=== PATIENT | female | born 1995 | race African-American/Black ===

== ENCOUNTER 2017-02-11 12:40 | Emergency (ER) | payer SELFPAY ==
[2017-02-11] MEDS ORDERED: Albuterol Sulfate 2.5 mg/0.5 ml Neb ONE ×2 (13:06→14:14)
[2017-02-11] MEDS ORDERED: predniSONE 20 MG TAB ONE (13:17)
== END 2017-02-11 15:05 | disposition home or self-care (01) ==
LOC: ERS 12:40
DX: J45.901 Unspecified asthma with (acute) exacerbation (principal)
CPT/HCPCS: 94640; J7506; J7611; J7620

== ENCOUNTER 2017-02-12 03:40 | Emergency (ER) | payer SELFPAY ==
[2017-02-12] MEDS ORDERED: Dexamethasone 4 mg/ml Vial ONE (04:05)
[2017-02-12] MEDS ORDERED: Magnesium Sulfate 2 GM/100 ML BAG ONE (04:52)
== END 2017-02-12 07:14 | disposition home or self-care (01) ==
LOC: ERS 03:40
DX: J45.909 Unspecified asthma, uncomplicated (principal)
CPT/HCPCS: 94640; 96365; 96367; J1100; J3475; J7620

== ENCOUNTER 2017-04-04 19:50 | Emergency (ER) | payer SELFPAY ==
[2017-04-04] MEDS ORDERED: Dexamethasone 4 mg/ml Vial ONE (21:09)
== END 2017-04-04 21:37 | disposition home or self-care (01) ==
LOC: ERS 19:50
DX: J02.9 Acute pharyngitis, unspecified (principal); J45.909 Unspecified asthma, uncomplicated; Z79.899 Other long term (current) drug therapy
CPT/HCPCS: 87081; 87430; 96372; J1100

== ENCOUNTER 2017-06-29 08:24 | Emergency (ER) | payer MEDICAID, SELFPAY ==
[2017-06-29] MEDS ORDERED: methylPREDNISolone Sod Succ/PF 125 MG/2 ML VIAL ONE (08:37)
[2017-06-29] MEDS ORDERED: Fentanyl 100 MCG/2 ML VIAL ONE (10:25)
[2017-06-29] MEDS ORDERED: Magnesium Sulfate 2 GM/100 ML BAG ONE (10:25)
[2017-06-29] MEDS ORDERED: Propofol 1,000 MG/100 ML VIAL IV ONE (11:51)
== END 2017-06-29 11:13 | disposition home or self-care (01) ==
LOC: ERS 08:24
DX: J45.901 Unspecified asthma with (acute) exacerbation (principal); J11.1 Influenza due to unidentified influenza virus with other respiratory manifestations; Z79.899 Other long term (current) drug therapy
CPT/HCPCS: 94640; 96361; 96374; J2704; J2930; J3010; J3475; J7620

== ENCOUNTER 2017-11-21 17:37 | Emergency (ER) | payer SELFPAY ==
--- NOTE | 2017-11-21 18:20 | RAD ---
THREE VIEWS LEFT WRIST: Date: 11-21-17 History: Left wrist pain following a fall. FINDINGS: There is no widening of the scapholunate interval. No displaced fracture or evidence of dislocation i s noted. The lateral examination demonstrates normal alignment. IMPRESSION: No acute findings. If symptoms persist, follow up in 7-10 days with dedicated scaphoid views advised. POS: [facility]
== END 2017-11-21 18:57 | disposition home or self-care (01) ==
LOC: ERS 17:37
DX: S60.212A Contusion of left wrist, initial encounter (principal); J45.909 Unspecified asthma, uncomplicated; F17.200 Nicotine dependence, unspecified, uncomplicated; W10.9XXA Fall (on) (from) unspecified stairs and steps, initial encounter

== ENCOUNTER 2018-02-10 00:17 | Emergency (ER) | payer SELFPAY | END 2018-02-10 01:30 | disposition home or self-care (01) | LOC: ERS 00:17 | DX: J45.901 Unspecified asthma with (acute) exacerbation (principal); F17.200 Nicotine dependence, unspecified, uncomplicated | CPT/HCPCS: J7620 ==

== ENCOUNTER 2018-09-07 18:21 | Emergency (ER) | payer SELFPAY | END 2018-09-07 19:20 | disposition home or self-care (01) | LOC: ERS 18:21 | DX: S00.83XA Contusion of other part of head, initial encounter (principal); J45.909 Unspecified asthma, uncomplicated; F17.200 Nicotine dependence, unspecified, uncomplicated; W50.0XXA Accidental hit or strike by another person, initial encounter; Y93.71 Activity, boxing | CPT/HCPCS: 99283 ==

== ENCOUNTER 2018-11-15 12:22 | Emergency (ER) | payer SELFPAY ==
[2018-11-15 13:45] LABS: Bilirubin Negative (Negative); Blood, Urine Negative (Negative); Clarity Clear (Clear); Glucose, Urine (Dipstick) Normal (Negative); Leukocyte Negative Leu/uL (Negative); Nitrite Negative (Negative); Protein, Urine (Dipstick) Negative (Neg-Trace); RBC/HPF 0-3 HPF (0-3); Squamous Epithelial 0-3 HPF (0-3); Urobilinogen Normal mg/dL (Less than 2); WBC/HPF 0-3 HPF (0-3)
[2018-11-15 13:46] LABS: Bacteria/HPF None Seen HPF (None Seen); Pregnancy Test - Urine (BHCG) Negative (Negative); Pregu Control Background? CLEAR/WHITE (CLR/WHITE); Pregu Control Bar Appear? YES (CONTROL BAR); Specific Gravity 1.003 (1.002-1.036)
== END 2018-11-15 14:36 | disposition home or self-care (01) ==
LOC: ERS 12:22
DX: N89.8 Other specified noninflammatory disorders of vagina (principal); J45.909 Unspecified asthma, uncomplicated; Z79.51 Long term (current) use of inhaled steroids
CPT/HCPCS: 81003; 81025; 99284

== ENCOUNTER 2019-10-22 11:22 | Outpatient (CLI) | payer OTHER ==
[2019-10-23 13:58] LABS: SARS-CoV-2 MS2 Positive
[2019-10-23 13:59] LABS: SARS-CoV-2 N Gene Positive; SARS-CoV-2 S Gene Positive; SARS-CoV-2 orf1ab Positive
== END 2019-10-22 11:23 | disposition home or self-care (01) ==
LOC: LABBT 11:22
PROVIDERS: ATTEND Family Medicine
DX: Z01.812 Encounter for preprocedural laboratory examination (principal); Z11.59 Encounter for screening for other viral diseases
CPT/HCPCS: 87635; U0003

== ENCOUNTER 2019-10-23 05:30 | Inpatient (IN) | payer OTHER ==
[2019-10-23 09:46] VITALS: BMI 27.1
[2019-10-23] MEDS: Lactated Ringer's 1,000 ML IV SCH ×3 (10:03→17:09)
[2019-10-23] MEDS ORDERED: Promethazine HCl 25 MG/ML VIAL IM PRN ×2 (10:08→13:16)
[2019-10-23] MEDS ORDERED: Lidocaine 1% (PF) 30 ML VIAL SC PRN (10:08)
[2019-10-23] MEDS ORDERED: NS w/ Oxytocin 10 units 500 ML IV SCH ×2 (10:08)
[2019-10-23] MEDS ORDERED: Butorphanol Tartrate 1 MG/ML VIAL SLOW IVP PRN (10:08)
[2019-10-23] MEDS ORDERED: Methylergonovine 0.2 MG/ML VIAL IM PRN (10:08)
[2019-10-23] MEDS ORDERED: Ondansetron PF 4 MG/2 ML Vial IVP PRN ×3 (10:08→20:56)
[2019-10-23] MEDS ORDERED: hydrALAZINE 20 MG/ML VIAL SLOW IVP PRN ×2 (10:08→20:56)
[2019-10-23] MEDS ORDERED: HYDROcodone/Acetaminophen 5/325 mg Tablet PO PRN (10:08)
[2019-10-23] MEDS ORDERED: Carboprost 250 MCG/ML AMP IM PRN (10:08)
[2019-10-23] MEDS ORDERED: Misoprostol 200 MCG TAB PR PRN (10:08)
[2019-10-23] MEDS ORDERED: Diphenoxylate HCl/Atropine Tablet PO PRN (10:08)
[2019-10-23] MEDS ORDERED: Ibuprofen 800 MG TAB PO PRN (10:08)
[2019-10-23] MEDS ORDERED: NS / Oxytocin 40 units/1000ml 1,000 ML IV PRN (10:08)
[2019-10-23 10:42] LABS: Hemoglobin 11.8 g/dL (12.0-16.0); Mean Corpuscular Hemoglobin 29.2 pg (27.0-31.0); Mean Corpuscular Volume 88.7 fL (78.0-98.0); Platelet Count 137 thou/uL (130-400); RBC Distribution Width 12.5 % (11.5-14.5); Red Blood Cell (RBC) Count 4.04 mill/uL (4.20-5.40); White Blood Cell (WBC) Count 8.3 thou/uL (4.8-10.8)
[2019-10-23 11:22] LABS: HBSAg Index 0.18 S/CO (0-0.99); Hep B Surf Ag Non-Reactive S/CO (NonReactive)
[2019-10-23 11:23] LABS: Syphilis Antibody Nonreactive (Nonreactive); Syphilis Antibody Index 0.06 S/CO (<1.00 Non-Reactive)
[2019-10-23] MEDS ORDERED: Fentanyl 4 mcg/Bup 0.1% Cadd 100 ML ONE (12:10)
[2019-10-23] MEDS ORDERED: diphenhydrAMINE 50 MG/ML VIAL IVP PRN (13:16)
[2019-10-23] MEDS ORDERED: Lactated Ringer's 500 ML IV PRN (13:16)
[2019-10-23] MEDS ORDERED: EPHEDRINE 25 MG/5 ML SYRINGE SLOW IVP PRN (13:16)
[2019-10-23] MEDS ORDERED: Acetaminophen 325 MG TAB PO PRN (13:16)
[2019-10-23] MEDS ORDERED: Naloxone HCl 0.4 mg/ml Vial IVP PRN ×2 (13:16)
[2019-10-23] MEDS ORDERED: Lidocaine 1% (PF) 30 ML VIAL ONE (13:28)
[2019-10-23] MEDS ORDERED: NS / Oxytocin 40 units/1000ml 1,000 ML ONE (13:28)
[2019-10-23] MEDS ORDERED: Fentanyl 4 mcg/Bupivacaine 0.1% Cassette 100 ML EPIDURAL SCH (13:30)
[2019-10-23] MEDS ORDERED: Communication Order-Pharmacy FS SCH (13:30)
[2019-10-23] MEDS ORDERED: NS / Oxytocin 40 units/1000ml 1,000 ML IV SCH (20:56)
[2019-10-23] MEDS ORDERED: Preparation H Ointment 28 GM TUBE PR PRN (20:56)
[2019-10-23] MEDS ORDERED: Milk Of Magnesia 30 ML UDCUP PO PRN (20:56)
[2019-10-23] MEDS ORDERED: diphenhydrAMINE 25 MG CAP PO PRN (20:56)
[2019-10-23] MEDS ORDERED: Bisacodyl 10 MG SUPP PR PRN (20:56)
[2019-10-23] MEDS ORDERED: Lanolin Ointment 7 GM TUBE TOP PRN (20:56)
[2019-10-24] MEDS: Docusate Calcium (SURFAK) 240 MG CAP PO SCH ×3 (00:41→21:14)
[2019-10-24] MEDS: Ibuprofen 800 MG TAB PO SCH ×3 (00:42→18:28)
[2019-10-24] MEDS: HYDROcodone/Acetaminophen 5/325 mg Tablet PO PRN ×4 (02:19→21:14)
[2019-10-24 07:02] LABS: Hemoglobin 11.7 g/dL (12.0-16.0); Mean Corpuscular Hemoglobin 30.4 pg (27.0-31.0); Mean Corpuscular Volume 89.5 fL (78.0-98.0); Mean Platelet Volume 9.8 fL (7.4-10.4); Platelet Count 131 thou/uL (130-400); RBC Distribution Width 12.3 % (11.5-14.5); Red Blood Cell (RBC) Count 3.84 mill/uL (4.20-5.40); White Blood Cell (WBC) Count 10.6 thou/uL (4.8-10.8)
[2019-10-24] MEDS: Ferrous Sulfate 325 MG TAB PO SCH ×2 (08:07→18:02)
[2019-10-24] MEDS: Prenatal Vitamin 1 TAB PO SCH (08:38)
[2019-10-24] MEDS ORDERED: Adacel (T-DAP) 0.5 ML SYRINGE IM ONE (09:00)
[2019-10-25] MEDS: HYDROcodone/Acetaminophen 5/325 mg Tablet PO PRN (01:04)
[2019-10-25] MEDS: Ibuprofen 800 MG TAB PO SCH ×2 (05:15→05:28)
[2019-10-25 08:23] VITALS: BP 127/76; TEMP 98.4
[2019-10-25] MEDS: Prenatal Vitamin 1 TAB PO SCH (10:35)
[2019-10-25] MEDS: Ferrous Sulfate 325 MG TAB PO SCH (10:35)
[2019-10-25] MEDS: Docusate Calcium (SURFAK) 240 MG CAP PO SCH (10:35)
== END 2019-10-25 12:26 | disposition home or self-care (01) | DRG 805 ==
LOC: L&D 09:13
PROVIDERS: ADMIT Family Medicine; ATTEND Family Medicine
PROC: 10E0XZZ Delivery of Products of Conception, External Approach (ICD-10-PCS; principal; 2019-10-23)
DX: O98.52 Other viral diseases complicating childbirth (principal); U07.1 COVID-19; Z37.0 Single live birth; Z3A.39 39 weeks gestation of pregnancy
CPT/HCPCS: 36415; 51702; 85027; 86780; 86850; 86900; 86901; 87340; 87635; J2001; J2405; J2550; J2590; U0003

== ENCOUNTER 2020-07-26 11:42 | Emergency (ER) | payer OTHER ==
[2020-07-26] MEDS ORDERED: Ibuprofen 800 MG TAB ONE (12:29)
[2020-07-26 12:41] LABS: Bacteria/HPF None Seen HPF (None Seen); Bilirubin Negative (Negative); Blood, Urine 1+ (Negative); Clarity Clear (Clear); Glucose, Urine (Dipstick) Normal (Negative); Ketone, Urine Negative (Negative); Leukocyte Negative Leu/uL (Negative); Nitrite Negative (Negative); Protein, Urine (Dipstick) 20 mg/dL (Neg-Trace); RBC/HPF 0-3 HPF (0-3); Specific Gravity, Urine 1.028 (1.002-1.036); Squamous Epithelial 0-3 HPF (0-3); WBC/HPF 0-3 HPF (0-3)
[2020-07-26 12:42] LABS: Pregnancy Test - Urine (BHCG) Negative (Negative); Pregu Control Background? CLEAR/WHITE (CLR/WHITE); Pregu Control Bar Appear? YES (CONTROL BAR); Specific Gravity 1.028 (1.002-1.036)
[2020-07-26] MEDS ORDERED: Lidocaine 1% (PF) 30 ML VIAL ONE (13:42)
[2020-07-26] MEDS ORDERED: cefTRIAXone\\ROCEPHIN 500 MG VIAL ONE (13:42)
[2020-07-26] MEDS ORDERED: Azithromycin 250 MG TAB ONE (13:42)
[2020-07-27 20:47] LABS: Chlamydia by PCR Not Detected (NotDetected); GC by PCR Not Detected (NotDetected)
== END 2020-07-26 14:08 | disposition home or self-care (01) ==
LOC: ERS 11:42
DX: T19.2XXA Foreign body in vulva and vagina, initial encounter (principal); N89.8 Other specified noninflammatory disorders of vagina; J45.909 Unspecified asthma, uncomplicated
CPT/HCPCS: 81003; 81015; 81025; 87480; 87491; 87510; 87591; 87660; 96372; 99284; J0696; J2001

== ENCOUNTER 2020-12-28 14:18 | Emergency (ER) | payer OTHER ==
[2020-12-28] MEDS ORDERED: Mag-Al 1200 mg/1200 mg/30 ML UDCUP ONE (15:30)
[2020-12-28] MEDS ORDERED: Lidocaine Viscous Sol 2% 15 ml UD Cup ONE (15:30)
== END 2020-12-28 16:55 | disposition home or self-care (01) ==
LOC: ERS 14:18
DX: J02.9 Acute pharyngitis, unspecified (principal); F45.8 Other somatoform disorders; J45.909 Unspecified asthma, uncomplicated; F17.210 Nicotine dependence, cigarettes, uncomplicated
CPT/HCPCS: 70360; 87081; 87430

== ENCOUNTER 2024-01-04 16:13 | Emergency (ER) | payer OTHER, SELFPAY ==
[2024-01-04 17:01] LABS: Bacteria/HPF None Seen HPF (None Seen); Bilirubin Negative (Negative); Blood, Urine 3+ (Negative); CAUTI Indications for Culture Pelvic or flank pain; Clarity Clear (Clear); Glucose, Urine (Dipstick) Normal (Negative); Ketone, Urine Negative (Negative); Leukocyte Negative Leu/uL (Negative); Nitrite Negative (Negative); Protein, Urine (Dipstick) Negative (Neg-Trace); RBC/HPF 0-3 HPF (0-3); Specific Gravity, Urine 1.017 (1.002-1.036); Urobilinogen Normal mg/dL (Less than 2); WBC/HPF 0-3 HPF (0-3); pH, Urine 6.5 (5.0-9.0)
[2024-01-04 17:02] LABS: Pregnancy Test - Urine (BHCG) Negative (Negative); Pregu Control Background? CLEAR/WHITE (CLR/WHITE); Pregu Control Bar Appear? YES (CONTROL BAR); Specific Gravity 1.017 (1.002-1.036)
[2024-01-04 17:03] LABS: Urine Culture Reflex No No
[2024-01-05 10:46] LABS: Chlamydia by PCR, Vaginal Swab Not Detected (NotDetected); GC by PCR, Vaginal Swab Not Detected (NotDetected)
== END 2024-01-04 18:00 | disposition home or self-care (01) ==
LOC: ERS 16:13
DX: N76.0 Acute vaginitis (principal)
CPT/HCPCS: 81001; 81025; 87480; 87491; 87510; 87591; 87660; 99283

== ENCOUNTER 2024-03-02 11:32 | Emergency (ER) | payer SELFPAY ==
[2024-03-02 12:48] LABS: Bacteria/HPF None Seen HPF (None Seen); Bilirubin Negative (Negative); Blood, Urine Negative (Negative); CAUTI Indications for Culture Dysuria,urgency,freq; Clarity Clear (Clear); Glucose, Urine (Dipstick) Normal (Negative); Ketone, Urine Negative (Negative); Leukocyte Negative Leu/uL (Negative); Nitrite Negative (Negative); Protein, Urine (Dipstick) Negative (Neg-Trace); RBC/HPF 0-3 HPF (0-3); Specific Gravity, Urine 1.017 (1.002-1.036); Urobilinogen Normal mg/dL (Less than 2); WBC/HPF 0-3 HPF (0-3); pH, Urine 6.5 (5.0-9.0)
[2024-03-02 12:49] LABS: Pregnancy Test - Urine (BHCG) Negative (Negative); Pregu Control Background? CLEAR/WHITE (CLR/WHITE); Pregu Control Bar Appear? YES (CONTROL BAR); Specific Gravity 1.017 (1.002-1.036)
[2024-03-02 12:52] LABS: Urine Culture Reflex No No
[2024-03-02 19:15] LABS: Chlamydia by PCR, Vaginal Swab Not Detected (NotDetected); GC by PCR, Vaginal Swab Not Detected (NotDetected)
== END 2024-03-02 15:08 | disposition home or self-care (01) ==
LOC: ERS 11:32
DX: N76.0 Acute vaginitis (principal)
CPT/HCPCS: 81001; 81025; 87480; 87491; 87510; 87591; 87660; 99283

== ENCOUNTER 2024-06-01 12:44 | Emergency (ER) | payer OTHER ==
[2024-06-01 13:33] LABS: #Basophils 0.04 10x3/uL (0.0-0.2); %Basophils 0.5 % (0.0-1.0); %Eosinophils 3.1 % (0.0-10.0); %Lymphocytes 28.4 % (21.0-51.0); %Monocytes 10.6 % (0.0-10.0); %Neutrophils 57.2 % (42.0-75.0); Hematocrit 34.4 % (36.0-47.0); Hemoglobin 11.8 g/dL (12.0-16.0); Mean Corpuscular HGB CONC 34.3 g/dL (32.0-36.0); Mean Corpuscular Hemoglobin 29.9 pg (27.0-31.0); Mean Corpuscular Volume 87.3 fL (78.0-98.0); Mean Platelet Volume 10.3 fL (7.4-10.4); Platelet Count 186 10x3/uL (130-400); RBC Distribution Width 12.1 % (11.5-14.5); Red Blood Cell (RBC) Count 3.94 mill/uL (4.20-5.40)
[2024-06-01 13:59] LABS: ALT (SGPT) 18 U/L (8-55); AST (SGOT) 13 U/L (5-34); Albumin 4.1 g/dL (3.5-5.0); Alkaline Phosphatase 56 U/L (40-110); Anion Gap 11 mmol/L (10-20); BUN (Urea Nitrogen) 10 mg/dL (7.0-18.7); Calc. Creatinine Clearance 0 mL/min (70-130); Carbon Dioxide 25 mmol/L (22-29); Chloride 105 mmol/L (98-107); Estimated GFR 116; Globulin 3.5 g/dL (2.4-3.5); Glucose 91 mg/dL (70-105); Lipase 13 U/L (8-78); Potassium 3.9 mmol/L (3.5-5.1); Protein, Total 7.6 g/dL (6.0-8.3); Sodium 137 mmol/L (136-145)
[2024-06-01 14:00] LABS: BHCG - Serum Negative (NEGATIVE); Pregs Control Background? CLEAR/WHITE (CLR/WHITE); Pregs Control Bar Appear? YES (CONTROL BAR)
[2024-06-01 14:25] LABS: Pregnancy Test - Urine (BHCG) Negative (Negative); Pregu Control Background? CLEAR/WHITE (CLR/WHITE); Pregu Control Bar Appear? YES (CONTROL BAR); Specific Gravity 1.021 (1.002-1.036)
[2024-06-01 14:27] LABS: Bacteria/HPF None Seen HPF (None Seen); Bilirubin Negative (Negative); Blood, Urine Negative (Negative); CAUTI Indications for Culture Acute Hematuria; Clarity Clear (Clear); Glucose, Urine (Dipstick) Normal (Negative); Ketone, Urine Negative (Negative); Leukocyte Negative Leu/uL (Negative); Nitrite Negative (Negative); Protein, Urine (Dipstick) Negative (Neg-Trace); RBC/HPF None Seen HPF (0-3); Specific Gravity, Urine 1.023 (1.002-1.036); WBC/HPF 0-3 HPF (0-3); pH, Urine 7.5 (5.0-9.0)
[2024-06-01 14:28] LABS: Urine Culture Reflex No No
== END 2024-06-01 15:01 | disposition home or self-care (01) ==
LOC: ERS 12:44
DX: R10.30 Lower abdominal pain, unspecified (principal)
CPT/HCPCS: 36415; 80053; 81001; 81025; 83690; 84703; 85025; 99284